=== PATIENT | female | born 1985 | race Hispanic/Latino ===

== ENCOUNTER 2022-04-06 15:55 | Emergency (ER) | payer OTHER ==
[2022-04-06 17:00] LABS: #Eosinphils 0.1 10x3/uL (0.0-0.5); #Monocytes 0.6 10x3/uL (0.0-1.1); #Neutrophils 7.5 10x3/uL (1.5-8.4); %Basophils 0.3 % (0.0-2.0); %Eosinophils 0.9 % (0.0-6.0); %Lymphocytes 15.9 % (18.0-47.0); %Monocytes 6.4 % (0.0-10.0); Hemoglobin 12.7 g/dL (12.0-15.5); Mean Corpuscular HGB CONC 34.9 g/dL (32.0-36.0); Mean Corpuscular Hemoglobin 30.2 pg (27.0-33.0); Mean Corpuscular Volume 86.5 fl (81.6-98.3); Platelet Count 187 10x3/uL (150-450); RBC Distribution Width 12.5 % (11.5-14.5); Red Blood Cell (RBC) Count 4.21 10x6/uL (3.90-5.03); White Blood Cell (WBC) Count 9.9 10x3/uL (3.5-10.5)
[2022-04-06 17:02] LABS: Bilirubin Neg (Negative); Blood, Urine 250 (Negative); Glucose, Urine (Dipstick) Normal (Negative); Ketone, Urine Negative (Negative); Leukocyte 25 (Negative); Nitrite Negative (Negative); Protein, Urine (Dipstick) 30 mg/dl (Neg-Trace)
[2022-04-06 17:12] LABS: Clarity Slightly Cloudy (Clear)
[2022-04-06 17:32] LABS: RBC/HPF 21-50 HPF (0-3)
[2022-04-06 17:33] LABS: Bacteria/HPF 1+ HPF (None Seen); Epithelial Cast 0-3 LPF (None Seen)
== END 2022-04-06 17:30 | disposition home or self-care (01) ==
LOC: CSHERS 15:55
DX: O20.9 Hemorrhage in early pregnancy, unspecified (principal); Z3A.12 12 weeks gestation of pregnancy
CPT/HCPCS: 81003; 81015; 84702; 85025; 86900; 86901; 87086

== ENCOUNTER 2022-10-14 10:04 | Inpatient (IN) | payer OTHER ==
[2022-10-13 12:25] LABS: Hemoglobin 11.6 g/dL (12.0-15.5); Platelet Count 160 10x3/uL (150-450)
[2022-10-13 12:58] LABS: HBSAg Index 0.28 S/CO (0-0.99); Hep B Surf Ag Non-Reactive S/CO (NonReactive); Syphilis Antibody Nonreactive (Nonreactive); Syphilis Antibody Index 0.11 S/CO (<1.00 Non-Reactive)
[2022-10-14 10:52] VITALS: BMI 38.0
[2022-10-14] MEDS ORDERED: Ondansetron PF 4 MG/2 ML Vial IVP PRN ×3 (11:08→16:56)
[2022-10-14] MEDS ORDERED: hydrALAZINE 20 MG/ML VIAL SLOW IVP PRN ×2 (11:08→16:56)
[2022-10-14] MEDS ORDERED: CEFAZOLIN 2 GM in Sodium Chloride 0.9% 100 ML IVPB SCH (11:08)
[2022-10-14] MEDS ORDERED: Promethazine HCl 25 MG/ML VIAL IM PRN ×2 (11:08→15:05)
[2022-10-14] MEDS ORDERED: Bicitra 30 ML UDCUP PO PRN (11:08)
[2022-10-14] MEDS ORDERED: Famotidine/PF 20 mg/2ml Vial SLOW IVP PRN (11:08)
[2022-10-14] MEDS ORDERED: Lactated Ringer's 1,000 ML IV SCH (11:08)
[2022-10-14] MEDS ORDERED: NS w/ Oxytocin 30 units 500 ML IV SCH (11:08)
[2022-10-14] MEDS ORDERED: Morphine PF 10 MG/10 ML VIAL ONE (11:55)
[2022-10-14] MEDS ORDERED: Dexamethasone 4 mg/ml Vial ONE (11:56)
[2022-10-14] MEDS ORDERED: Ondansetron PF 4 MG/2 ML Vial ONE (11:56)
[2022-10-14] MEDS ORDERED: PHENYLEPHRINE-NS 100 MCG/ML 10 ML SYRINGE ONE (11:56)
[2022-10-14] MEDS ORDERED: Oxytocin 10 UNITS/ML VIAL ONE (11:56)
[2022-10-14] MEDS ORDERED: Phenylephrine 40 MG/NS 250 ML 250 ML ONE (11:56)
[2022-10-14] MEDS ORDERED: Promethazine HCl 25 MG SUPP PR PRN (15:05)
[2022-10-14] MEDS ORDERED: Moisturizing Cream (Eucerin) 113 GM JAR TOP PRN (15:05)
[2022-10-14] MEDS ORDERED: diphenhydrAMINE 50 MG/ML VIAL IVP PRN (15:05)
[2022-10-14] MEDS ORDERED: Naloxone HCl 0.4 mg/ml Vial IVP PRN ×2 (15:05)
[2022-10-14] MEDS ORDERED: Naloxone HCl 0.4 mg/ml Vial IV PRN (15:05)
[2022-10-14] MEDS ORDERED: Communication Order-Pharmacy FS SCH (15:15)
[2022-10-14] MEDS ORDERED: Ketorolac Tromethamine 30 MG/ML VIAL ONE (15:16)
[2022-10-14] MEDS ORDERED: Lanolin Ointment 7 GM TUBE TOP PRN (16:56)
[2022-10-14] MEDS ORDERED: diphenhydrAMINE 25 MG CAP PO PRN (16:56)
[2022-10-14] MEDS ORDERED: Boostrix 0.5 ML (Tdap) VIAL (>/=7 yrs of age) IM ONE (16:56)
[2022-10-14] MEDS ORDERED: Bisacodyl 10 MG SUPP PR PRN (16:56)
[2022-10-14] MEDS ORDERED: Simethicone Chewable 80 MG TAB PO PRN (16:56)
[2022-10-14] MEDS: Ferrous Sulfate 325 MG TAB PO SCH (22:04)
[2022-10-14] MEDS: Docusate 100 MG CAP PO SCH (22:04)
[2022-10-14] MEDS: Ketorolac Tromethamine 30 MG/ML VIAL IVP PRN (22:13)
[2022-10-15 04:22] LABS: Mean Corpuscular HGB CONC 32.4 g/dL (32.0-36.0); Mean Corpuscular Hemoglobin 26.8 pg (27.0-33.0); Mean Corpuscular Volume 82.8 fl (81.6-98.3); Platelet Count 154 10x3/uL (150-450); RBC Distribution Width 14.4 % (11.5-14.5); Red Blood Cell (RBC) Count 3.73 10x6/uL (3.90-5.03)
[2022-10-15] MEDS: Ketorolac Tromethamine 30 MG/ML VIAL IVP PRN (04:48)
[2022-10-15] MEDS: HYDROcodone/Acetaminophen 5/325 mg Tablet PO PRN ×4 (04:49→17:56)
[2022-10-15] MEDS: Docusate 100 MG CAP PO SCH ×2 (08:36→21:57)
[2022-10-15] MEDS: Ferrous Sulfate 325 MG TAB PO SCH ×2 (08:36→21:59)
[2022-10-15] MEDS: Prenatal Vitamin 1 TAB PO SCH (08:36)
[2022-10-15] MEDS: Ibuprofen 800 MG TAB PO SCH ×2 (13:50→21:56)
[2022-10-16] MEDS: HYDROcodone/Acetaminophen 5/325 mg Tablet PO PRN (04:21)
[2022-10-16] MEDS: Ibuprofen 800 MG TAB PO SCH (06:20)
[2022-10-16] MEDS: Ferrous Sulfate 325 MG TAB PO SCH (08:46)
[2022-10-16] MEDS: Prenatal Vitamin 1 TAB PO SCH (08:47)
[2022-10-16] MEDS: Docusate 100 MG CAP PO SCH (08:47)
[2022-10-16 09:26] VITALS: BP 99/55; TEMP 97.6
== END 2022-10-16 11:45 | disposition home or self-care (01) | DRG 788 ==
LOC: CSHLD 10:04 → CSHPP 15:30
PROVIDERS: ADMIT Obstetrics & Gynecology; ATTEND Obstetrics & Gynecology
PROC: 10D00Z1 Extraction of Products of Conception, Low, Open Approach (ICD-10-PCS; principal; 2022-10-14)
DX: O34.211 Maternal care for low transverse scar from previous cesarean delivery (principal); Z3A.39 39 weeks gestation of pregnancy; Z37.0 Single live birth; O36.5930 Maternal care for other known or suspected poor fetal growth, third trimester, not applicable or unspecified
CPT/HCPCS: 36415; 51702; 85014; 85018; 85027; 85049; 86780; 86850; 86900; 86901; 87340; J1100; J1885; J2274; J2405; J2590; J3490